=== PATIENT | female | born 1990 | race Caucasian/White ===

== ENCOUNTER → 2022-03-29 14:38 | Outpatient (BNVA) | payer OTHER, SELFPAY | PROVIDERS: Visit Provider Psychiatry & Neurology Psychiatry | DX: F11.20 Opioid dependence, uncomplicated (principal); F43.12 Post-traumatic stress disorder, chronic; F33.2 Major depressive disorder, recurrent severe without psychotic features; Z79.899 Other long term (current) drug therapy | CPT/HCPCS: 80307 ==

== ENCOUNTER → 2022-03-31 13:33 | Outpatient (BNVA) | payer OTHER, SELFPAY | PROVIDERS: Visit Provider Psychiatry & Neurology Psychiatry | DX: F11.20 Opioid dependence, uncomplicated (principal); Z79.899 Other long term (current) drug therapy; F33.2 Major depressive disorder, recurrent severe without psychotic features; F43.12 Post-traumatic stress disorder, chronic | CPT/HCPCS: 80307 ==

== ENCOUNTER → 2022-05-06 14:14 | Outpatient (BNVA) | payer OTHER, SELFPAY | PROVIDERS: Visit Provider Psychiatry & Neurology Psychiatry | DX: F11.20 Opioid dependence, uncomplicated (principal); Z79.899 Other long term (current) drug therapy; F33.2 Major depressive disorder, recurrent severe without psychotic features; F43.12 Post-traumatic stress disorder, chronic | CPT/HCPCS: 80307 ==

== ENCOUNTER → 2022-06-03 13:36 | Outpatient (BNVA) | payer OTHER, SELFPAY | PROVIDERS: Visit Provider Psychiatry & Neurology Psychiatry | DX: F11.20 Opioid dependence, uncomplicated (principal); F33.2 Major depressive disorder, recurrent severe without psychotic features; F43.12 Post-traumatic stress disorder, chronic; F10.10 Alcohol abuse, uncomplicated; Z79.899 Other long term (current) drug therapy | CPT/HCPCS: 80307 ==

== ENCOUNTER → 2022-07-01 16:19 | Outpatient (BNVA) | payer OTHER, SELFPAY | PROVIDERS: PCP Nurse Practitioner Family; Visit Provider Psychiatry & Neurology Psychiatry | DX: F11.20 Opioid dependence, uncomplicated (principal); Z79.899 Other long term (current) drug therapy; F33.2 Major depressive disorder, recurrent severe without psychotic features; F43.12 Post-traumatic stress disorder, chronic; F10.10 Alcohol abuse, uncomplicated | CPT/HCPCS: 80307 ==

== ENCOUNTER → 2022-07-04 16:55 | Outpatient (BNVA) | payer MEDICAID, SELFPAY | PROVIDERS: PCP Nurse Practitioner Family; Visit Provider Nurse Practitioner Family | DX: L20.9 Atopic dermatitis, unspecified (principal); L85.3 Xerosis cutis; J30.2 Other seasonal allergic rhinitis; F33.2 Major depressive disorder, recurrent severe without psychotic features; F43.12 Post-traumatic stress disorder, chronic; F11.20 Opioid dependence, uncomplicated; Z79.899 Other long term (current) drug therapy; Z13.220 Encounter for screening for lipoid disorders; Z13.1 Encounter for screening for diabetes mellitus; Z76.89 Persons encountering health services in other specified circumstances; F17.200 Nicotine dependence, unspecified, uncomplicated | CPT/HCPCS: 80053; 80061; 83036; 84443 ==

== ENCOUNTER → 2022-09-09 15:29 | Outpatient (BNVA) | payer MEDICAID, SELFPAY | PROVIDERS: PCP Nurse Practitioner Family; Visit Provider Psychiatry & Neurology Psychiatry | DX: F11.20 Opioid dependence, uncomplicated (principal); Z79.899 Other long term (current) drug therapy; F33.2 Major depressive disorder, recurrent severe without psychotic features; F43.12 Post-traumatic stress disorder, chronic; F10.10 Alcohol abuse, uncomplicated | CPT/HCPCS: 80307 ==

== ENCOUNTER → 2022-11-24 11:33 | Outpatient (BNVA) | payer MEDICAID, SELFPAY | PROVIDERS: PCP Nurse Practitioner Family; Visit Provider Psychiatry & Neurology Psychiatry | DX: F11.20 Opioid dependence, uncomplicated (principal); Z79.899 Other long term (current) drug therapy | CPT/HCPCS: 80307 ==

== ENCOUNTER → 2022-11-30 16:26 | Outpatient (BNVA) | payer MEDICAID, SELFPAY | PROVIDERS: PCP Nurse Practitioner Family; Visit Provider Nurse Practitioner Family | DX: R22.32 Localized swelling, mass and lump, left upper limb (principal) | CPT/HCPCS: 73130 ==

== ENCOUNTER → 2023-02-17 16:20 | Outpatient (BNVA) | payer MEDICAID, SELFPAY | PROVIDERS: PCP Nurse Practitioner Family; Visit Provider Psychiatry & Neurology Psychiatry | DX: F11.20 Opioid dependence, uncomplicated (principal); Z79.899 Other long term (current) drug therapy; F43.12 Post-traumatic stress disorder, chronic; F33.2 Major depressive disorder, recurrent severe without psychotic features; F10.10 Alcohol abuse, uncomplicated | CPT/HCPCS: 80307 ==

== ENCOUNTER → 2023-05-19 16:36 | Outpatient (BNVA) | payer MEDICAID, SELFPAY | PROVIDERS: PCP Nurse Practitioner Family; Visit Provider Psychiatry & Neurology Psychiatry | DX: F11.20 Opioid dependence, uncomplicated (principal); Z79.899 Other long term (current) drug therapy; F43.12 Post-traumatic stress disorder, chronic; F33.2 Major depressive disorder, recurrent severe without psychotic features; F10.10 Alcohol abuse, uncomplicated | CPT/HCPCS: 80307 ==

== ENCOUNTER → 2023-10-04 11:37 | Outpatient (BNVA) | payer MEDICAID, SELFPAY | PROVIDERS: PCP Nurse Practitioner Family; Visit Provider Psychiatry & Neurology Psychiatry | DX: F11.20 Opioid dependence, uncomplicated (principal); F43.12 Post-traumatic stress disorder, chronic; F33.2 Major depressive disorder, recurrent severe without psychotic features; F10.10 Alcohol abuse, uncomplicated; Z79.899 Other long term (current) drug therapy | CPT/HCPCS: 80307 ==

== ENCOUNTER → 2024-01-03 15:21 | Outpatient (BNVA) | payer MEDICAID, SELFPAY | PROVIDERS: PCP Nurse Practitioner Family; Visit Provider Psychiatry & Neurology Psychiatry | DX: J30.2 Other seasonal allergic rhinitis (principal); F10.10 Alcohol abuse, uncomplicated; F11.20 Opioid dependence, uncomplicated; Z79.899 Other long term (current) drug therapy; F43.12 Post-traumatic stress disorder, chronic; F33.2 Major depressive disorder, recurrent severe without psychotic features | CPT/HCPCS: 80307 ==

== ENCOUNTER → 2024-04-03 15:41 | Outpatient (BNVA) | payer MEDICAID, SELFPAY | PROVIDERS: PCP Nurse Practitioner Family; Visit Provider Psychiatry & Neurology Psychiatry | DX: Z79.899 Other long term (current) drug therapy (principal); F11.20 Opioid dependence, uncomplicated; F10.10 Alcohol abuse, uncomplicated | CPT/HCPCS: 80307 ==

== ENCOUNTER → 2024-07-04 11:03 | Outpatient (BNVA) | payer MEDICAID, SELFPAY | PROVIDERS: PCP Nurse Practitioner Family; Visit Provider Psychiatry & Neurology Psychiatry | DX: F11.20 Opioid dependence, uncomplicated (principal); Z79.899 Other long term (current) drug therapy; F43.12 Post-traumatic stress disorder, chronic; F33.2 Major depressive disorder, recurrent severe without psychotic features; F10.10 Alcohol abuse, uncomplicated | CPT/HCPCS: 80307 ==

== ENCOUNTER → 2024-10-03 10:35 | Outpatient (BNVA) | payer MEDICAID, SELFPAY | PROVIDERS: Visit Provider Psychiatry & Neurology Psychiatry | DX: F11.20 Opioid dependence, uncomplicated (principal); F10.10 Alcohol abuse, uncomplicated; Z79.899 Other long term (current) drug therapy | CPT/HCPCS: 80307 ==

== ENCOUNTER → 2024-12-25 13:26 | Outpatient (BNVA) | payer MEDICAID, SELFPAY | PROVIDERS: Visit Provider Psychiatry & Neurology Psychiatry | DX: F11.20 Opioid dependence, uncomplicated (principal); Z79.899 Other long term (current) drug therapy; F10.10 Alcohol abuse, uncomplicated; F33.2 Major depressive disorder, recurrent severe without psychotic features; F43.12 Post-traumatic stress disorder, chronic | CPT/HCPCS: 80307 ==

== ENCOUNTER → 2025-03-26 13:59 | Outpatient (BNVA) | payer MEDICAID, SELFPAY | PROVIDERS: PCP Pediatrics; Visit Provider Psychiatry & Neurology Psychiatry | DX: F11.20 Opioid dependence, uncomplicated (principal); Z79.899 Other long term (current) drug therapy | CPT/HCPCS: 80307 ==

== ENCOUNTER → 2025-06-18 15:36 | Outpatient (BNVA) | payer MEDICAID, SELFPAY | PROVIDERS: PCP Pediatrics; Visit Provider Psychiatry & Neurology Psychiatry | DX: F11.20 Opioid dependence, uncomplicated (principal); F10.10 Alcohol abuse, uncomplicated; Z79.899 Other long term (current) drug therapy | CPT/HCPCS: 80307 ==